=== PATIENT | male | born 1990 | race Caucasian/White ===

== ENCOUNTER 2017-12-24 14:17 | Emergency (ER) | payer SELFPAY ==
[~2017-12-24] VITALS: Ht 188 cm; Wt 93.0 kg
[2017-12-24 14:24] VITALS: BP 125/76
[2017-12-24 15:29] VITALS: BP 122/72
== END 2017-12-24 15:40 | disposition home or self-care (01) ==
LOC: MED 14:17
DX: F32.9 Major depressive disorder, single episode, unspecified (principal); E03.9 Hypothyroidism, unspecified; Z76.0 Encounter for issue of repeat prescription
CPT/HCPCS: 99283